=== PATIENT | female | born 2000 | race Caucasian/White ===

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

== ENCOUNTER → 2019-11-26 | Outpatient (CLI) | payer BC | LOC: COL.VAS 12:39 | DX: M79.89 Other specified soft tissue disorders (principal); Z96.652 Presence of left artificial knee joint ==